=== PATIENT | male | born 1955 | race Two or more races ===

== ENCOUNTER 2018-06-17 08:13 | Outpatient (CLI) | payer OTHER | END 2018-06-17 08:24 | disposition home or self-care (01) | LOC: SONOGRAMA 08:13 | DX: K80.20 Calculus of gallbladder without cholecystitis without obstruction (principal) ==

== ENCOUNTER 2021-02-28 08:00 | Outpatient (CLI) | payer OTHER | END 2021-02-28 08:30 | disposition home or self-care (01) | LOC: PPH VACUNA 08:00 | DX: Z23 Encounter for immunization (principal) ==

== ENCOUNTER 2021-03-22 08:00 | Outpatient (CLI) | payer OTHER | END 2021-03-22 08:30 | disposition home or self-care (01) | LOC: PPH VACUNA 08:00 | DX: Z23 Encounter for immunization (principal) ==